=== PATIENT | female | born 1995 | race Caucasian/White ===

== ENCOUNTER 2018-04-08 15:46 | Emergency (ER) | payer SELFPAY ==
[2018-04-08 15:50] VITALS: BP 128/59; PULSE 78; TEMP 98.9; BMI 23.6
--- NOTE | 2018-04-08 16:30 | PDOC ---
History of Present Illness - General Chief Complaint: Cold Symptoms Stated Complaint: COUGH WITH BODYACHES Time Seen by Provider: 04/08/18 16:17 History Source: Patient, Operation Specialist Used (#[id number]) Exam Limitations: Clinical Condition - History of Present Illness Initial Comments: 04/08/18 16:30 Patient with no significant fat medical history present with complain of 1 week history of persistent cough, nasal congestion, malaise, chills and body aches. Patient also report tactile fever but has not taken anything for fever. Denies nausea or vomiting or diarrhea. I shortness of breath Timing/Duration: 1 week Past History - Past Medical History Allergies/Adverse Reactions: Allergies Allergy/AdvReac Type Severity Reaction Status Date / Time No Known Allergies Allergy Verified 04/08/18 15:51 Home Medications: Ambulatory Orders Azithromycin [Zithromax 250mg Tablets -] 250 mg PO UTDICT #6 tab 04/08/18 Benzonatate [Tessalon Pearls -] 100 mg PO TID PRN #21 capsule 04/08/18 Ipratropium [place] 2 spray NS BID PRN #1 spray 04/08/18 Methylprednisolone [Medrol Dose Edmundo] 4 mg PO ASDIR #21 tablet 04/08/18 COPD: No - Suicide/Smoking/Psychosocial Hx Smoking History: Never smoked Review of Systems - Review of Systems Able to Perform ROS?: Yes Is the patient limited [place]raini proficient: No Constitutional: Yes: Chills, Malaise. No: Weakness HEENTM: Yes: See HPI, Nose Congestion. No: Eye Pain, Blurred Vision, Tearing, Recent change in vision, Double Vision, Cataracts, Ear Pain, Ocular Prothesis, Ear Discharge, Nose Pain, Tinnitus, Nose Bleeding, Hearing Loss, Throat Pain, Throat Swelling, Mouth Pain, Dental Problems, Difficulty Swallowing, Mouth Swelling, Other Respiratory: Yes: Cough. No: Orthopnea, Shortness of Breath, SOB with Exertion , Wheezing, Productive cough, Hemoptysis Cardiac (ROS): No: Chest Pain, Edema, Irregular Heart Rate, Lightheadedness, Palpitations, Syncope, Chest Tightness, Other ABD/GI: No: Abdominal Distended, Abd. Pain w/ defecation, Blood Streaked Bowels , Constipated, Diarrhea, Difficulty Swallowing, Nausea, Poor Appetite, Poor Fluid Intake, Rectal Bleeding, Vomiting, Indigestion, Abdominal cramping, Tarry Stools, Other All Other Systems: Reviewed and Negative *Physical Exam - Vital Signs Last Vital Signs Temp Pulse Resp BP Pulse Ox 98.9 F 78 18 128/59 L 98 04/08/18 15:48 04/08/18 15:48 04/08/18 15:48 04/08/18 15:48 04/08/18 15:48 - Physical Exam Comments: 04/08/18 16:31 GENERAL: Well developed, well nourished. Awake and alert. No acute distress. HEENT: Normocephalic, atraumatic. PERRLA, EOMI. No conjunctival pallor. Sclera are non-icteric. Moist mucous membranes. Oropharynx is clear. NECK: Supple. Full ROM. CARDIOVASCULAR: Regular rate and rhythm. No murmurs, rubs, or gallops. Distal pulses are 2+ and symmetric. PULMONARY: No evidence of respiratory distress. Lungs clear to auscultation bilaterally. No wheezing, rales or rhonchi. ABDOMINAL: Soft. Non-tender. Non-distended. No rebound or guarding. No organomegaly. Normoactive bowel sounds. MUSCULOSKELETAL Normal range of motion at all joints. EXTREMITIES: No cyanosis. No clubbing. No edema. No calf tenderness. SKIN: Warm and dry. Normal capillary refill. No rashes. No jaundice. NEUROLOGICAL: Alert, awake, appropriate. Gait is normal without ataxia. PSYCHIATRIC: Cooperative. Good eye contact. Appropriate mood General Appearance: Yes: Nourished, Appropriately Dressed. No: Apparent Distress Medical Decision Making - Medical Decision Making 04/08/18 16:31 Patient with no significant past medical she present with complain of 1 week history of persistent nonproductive cough, nasal congestion, body aches and chills. Patient with no fever today. Lungs clear to auscultation. Symptoms likely URI and will be treated on outpatient basis with PCP follow-up *DC/Admit/Observation/Transfer Diagnosis at time of Disposition: Cough, Nasal congestion URI (upper respiratory infection) Qualifiers: URI type: unspecified URI Qualified Code(s): J06.9 - Acute upper respiratory infection, unspecified - Discharge Dispostion Disposition: HOME Condition at time of disposition: Stable Decision to Admit order: No - Prescriptions Prescriptions: Azithromycin [Zithromax 250mg Tablets -] 250 mg PO UTDICT #6 tab Benzonatate [Tessalon Pearls -] 100 mg PO TID PRN #21 capsule PRN Reason: Cough Ipratropium [place] 2 spray NS BID PRN #1 spray PRN Reason: nasal congestion Methylprednisolone [Medrol Dose Edmundo] 4 mg PO ASDIR #21 tablet - Referrals - Patient Instructions Printed Discharge Instructions: DI for Acute Bronchitis Additional Instructions: Take medications as prescribed. Increase fluid intake. Follow with primary care - Post Discharge Activity
== END 2018-04-08 16:42 | disposition home or self-care (01) ==
LOC: JERFT 15:46
DX: J06.9 Acute upper respiratory infection, unspecified (principal)
CPT/HCPCS: 99281-25

== ENCOUNTER 2018-11-11 08:30 | Emergency (ER) | payer SELFPAY ==
[2018-11-11 08:44] VITALS: BP 110/55; PULSE 75; TEMP 98; BMI 22.6
--- NOTE | 2018-11-11 09:27 | PDOC ---
History of Present Illness - General Chief Complaint: Pain Stated Complaint: LT SIDE BREAST PAIN Time Seen by Provider: 11/11/18 09:01 History Source: Patient Exam Limitations: Language Barrier (Tyrese Leroy #[id number]) - History of Present Illness Initial Comments: 11/11/18 09:27 HISTORY OF PRESENT ILLNESS: 23-year-old female denies medical history presents emergency Department with left breast pain for 7 days as progressively gotten worse over the past 3 days. Patient rates her pain now is 7/10 describes as a pressure. Patient denies any redness or discharge from her nipple. Patient reports her last menstrual period was July 31 reports she is currently sexually active. Patient does not believe she is . Patient denies any abdominal pain, vaginal bleeding, vaginal discharge. No recent travel or sick contacts. PAST MEDICAL HISTORY: Denies past medical history SURGICAL HISTORY: Denies ALLERGIES: No known drug allergies REVIEW OF SYSTEMS General/Constitutional: Denies fever or chills. Denies weakness, weight change. HEENT: Denies change in vision. Denies ear pain or discharge. Denies sore throat. Cardiovascular: Denies chest pain or shortness of breath. Respiratory: Denies cough, wheezing, or hemoptysis. Gastrointestinal: Denies nausea, vomiting, diarrhea or constipation. Denies rectal bleeding. Genitourinary: Denies dysuria, frequency, or change in urination. Musculoskeletal: Denies joint or muscle swelling or pain. Denies neck or back pain. Skin and breasts: see HPI Neurologic: Denies headache, vertigo, loss of consciousness, or loss of sensation. Psychiatric: Denies depression or anxiety. Endocrine: Denies increased thirst. Denies abnormal weight change. Hematologic/Lymphatic: Denies anemia, easy bleeding, or history of blood clots. Allergic/Immunologic: Denies hives or skin allergy. Denies latex allergy. PHYSICAL EXAM General Appearance: Well-appearing, appropriately dressed. No apparent distress , no intoxication. HEENT: EOMI, PERRLA, normal ENT inspection, normal voice, TMs normal, pharynx normal. No conjunctival pallor. No photophobia, scleral icterus. Neck: Supple. Trachea midline. No tenderness, rigidity, carotid bruit, stridor , lymphadenopathy, or thyromegaly. Respiratory/Chest: Lungs CTAB. No shortness of breath, chest tenderness, respiratory distress, accessory muscle use. No crackles, rales, rhonchi, stridor , wheezing, dullness Cardiovascular: RRR. S1, S2. No JVD, murmur, bradycardia, tachycardia. Vascular Pulses: Dorsalis-Pedis (R): 2+, Dorsalis-Pedis (L): 2+ Gastrointestinal/Abdominal: Normal bowel sounds. Abdomen soft, non-distended. No tenderness or rebound tenderness. No organomegaly, pulsatile mass, guarding, hernia, hepatomegaly, splenomegaly. Lymphatic: No adenopathy, tenderness. Breast Exam: Breast exam performed with CALDERON Singer at the bedside. No erythema palpable masses present. Unable to express discharge from nipple. No tenderness or masses present in the [place]. No difference in exam from unaffected side. Musculoskeletal/Extremities: Normal inspection. FROM of all extremities, normal capillary refill. Pelvis Stable. No CVA tenderness. No tenderness to extremities, pedal edema, swelling, erythema or deformity. Integumentary: Appropriate color, dry, warm. No cyanosis, erythema, jaundice or rash Neurologic: plate slitter and inspector II-XII intact. Fully oriented, alert. Appropriate mood/affect. Motor strength 5/5. No appreciable EOM palsy, facial droop or sensory deficit. 11/11/18 09:36 Past History - Past Medical History Allergies/Adverse Reactions: Allergies Allergy/AdvReac Type Severity Reaction Status Date / Time No Known Allergies Allergy Verified 11/11/18 08:40 Home Medications: Ambulatory Orders NK [No Known Home Medication] 11/11/18 COPD: No - Immunization History Immunization Up to Date: No - Suicide/Smoking/Psychosocial Hx Smoking History: Never smoked Hx Alcohol Use: No Drug/Substance Use Hx: No *Physical Exam - Vital Signs Last Vital Signs Temp Pulse Resp BP Pulse Ox 98.0 F 75 18 110/55 L 98 11/11/18 08:41 11/11/18 08:41 11/11/18 08:41 11/11/18 08:41 11/11/18 08:41 Medical Decision Making - Medical Decision Making 11/11/18 09:35 A/P: 23-year-old woman with left breast pain for one week Normal breast exam Given patient is missing her period for 3 months this is likely Urine testing Reassess 11/11/18 09:57 11/11/18 09:58 Given normal breast exam and negative testing I will discharge the patient the follow-up to primary doctor for outpatient imaging. *DC/Admit/Observation/Transfer Diagnosis at time of Disposition: Breast pain, left - Discharge Dispostion Disposition: HOME Condition at time of disposition: Stable Decision to Admit order: No - Referrals - Patient Instructions Additional Instructions: Breast exam is normal today. Follow-up to primary doctor for any imaging including ultrasound and/or mammography. Your testing is negative. Return to emergency department for any new or worsening symptoms including discharge from her nipple, redness to the breast or increased pain. Thank you very much for choosing us to provide your emergent health care needs. El examen de senos es normal hoy. Seguimiento al mdico de cabecera para cualquier imagen que incluya ecografa y / o mamografa. [place]man prueba de embarazo es negativa. Regrese al departamento de emergencias para detectar cualquier sntoma nuevo o que empeore, stephanie secrecin de grossman pezn, enrojecimiento en el seno o aumento del dolor. Muchas dani por elegirnos para satisfacer sav necesidades de atencin mdica de emergencia. - Post Discharge Activity
== END 2018-11-11 10:04 | disposition home or self-care (01) ==
LOC: JER 08:30 → JERFT 08:30
DX: N64.4 Mastodynia (principal)
CPT/HCPCS: 84703; 99281-25

== ENCOUNTER 2019-07-28 20:01 | Emergency (ER) | payer SELFPAY ==
[2019-07-28] MEDS ORDERED: diphenhydrAMINE HCL 50 MG CAPSULE PO ONE (20:09)
[2019-07-28] MEDS ORDERED: DEXAMETHASONE LIQUID 0.5 MG/5 ML PO ONE (20:09)
--- NOTE | 2019-07-28 20:09 | PDOC ---
Rapid Medical Evaluation Time Seen by Provider: 07/28/19 20:08 Medical Evaluation: Allergies Allergy/AdvReac Type Severity Reaction Status Date / Time No Known Allergies Allergy Verified 11/11/18 08:40 07/28/19 20:08 HPI: Rash since yesterday PE: Raised wheels B UE and LE ORDERS: Decadron and benadryl Discharge Disposition - Diagnosis Allergic rash present on examination - Referrals - Patient Instructions - Post Discharge Activity
[2019-07-28 20:10] VITALS: BP 110/66; PULSE 71; TEMP 97.9; BMI 23.6
[2019-07-28] MEDS ORDERED: diphenhydrAMINE HCL 25 MG CAPSULE (FP) PO ONE (20:58)
[2019-07-28] MEDS ORDERED: DEXAMETHASONE SOD PHOSPHATE 10 MG/1 ML VIAL ONE (20:58)
[2019-07-28] MEDS ORDERED: hydrOXYzine PAMOATE 25 MG CAPSULE (FP) PO ONE ×2 (21:46→21:55)
[2019-07-28] MEDS ORDERED: FAMOTIDINE 20 MG TABLET PO ONE (21:47)
[2019-07-28] MEDS ORDERED: FAMOTIDINE 20 MG TABLET ONE (21:50)
--- NOTE | 2019-07-28 21:53 | PDOC ---
History of Present Illness - General Chief Complaint: Allergic Reaction Stated Complaint: ALLERGIC REACTION Time Seen by Provider: 07/28/19 20:08 History Source: Patient - History of Present Illness Initial Comments: 07/28/19 22:36 Chief complaint: Allergic reaction Patient is a healthy 24-year-old female with 1 day of itchy rash. Patient states that her and her drank coffee and had bread yesterday morning and she broke out in an itchy rash. No respiratory problems, no fever. Patient is never had this before. Patient took Benadryl last night which she states did not work. Patient is not on any medication GENERAL/CONSTITUTIONAL: No fever, weakness. dizziness HEAD, EYES, EARS, NOSE AND THROAT: No change in vision. No ear pain or discharge. No sore throat. CARDIOVASCULAR: No chest pain RESPIRATORY: No shortness of breath or cough GASTROINTESTINAL: No pain, nausea, vomiting, diarrhea or constipation GENITOURINARY: No dysuria MUSCULOSKELETAL: No neck or back pain SKIN: +rash NEUROLOGIC: No headache, vertigo, loss of consciousness, or loss of sensation. GENERAL: The patient is awake, alert, and fully oriented, in no acute distress. HEAD: Normal with no signs of trauma. EYES: Pupils equal, round and reactive to light, sclera anicteric, conjunctiva clear. ENT: pharynx: no erythema, no exudate, uvula midline, no oral lesions, voice is normal NECK: supple CHEST: clear, nontender, rr ABD: soft, nontender BACK: no tenderness or signs of injury EXTREMITIES: Normal range of motion, no edema. NEUROLOGICAL: Normal speech, normal gait. SKIN: Warm, Dry, scattered urticaria, blanchable, no signs of petechiae, purpura , vesicles or other concerning skin findings. Past History - Past Medical History Allergies/Adverse Reactions: Allergies Allergy/AdvReac Type Severity Reaction Status Date / Time No Known Allergies Allergy Verified 07/28/19 20:10 Home Medications: Ambulatory Orders Hydroxyzine Pamoate 25 mg PO TID PRN #21 capsule 07/28/19 predniSONE [Deltasone -] 40 mg PO DAILY #8 tablet 07/28/19 COPD: No - Immunization History Immunization Up to Date: No - Psycho Social/Smoking Cessation Hx Smoking History: Never smoked Information on smoking cessation initiated: No Hx Alcohol Use: No Drug/Substance Use Hx: No *Physical Exam - Vital Signs Last Vital Signs Temp Pulse Resp BP Pulse Ox 97.9 F 71 18 110/66 99 07/28/19 20:08 07/28/19 20:08 07/28/19 20:08 07/28/19 20:08 07/28/19 20:08 ED Treatment Course - Medications Given in the ED: ED Medications Discontinued Medications Generic Name Dose Route Start Last Admin Trade Name Freq PRN Reason Stop Dose Admin Dexamethasone 10 mg 07/28/19 20:09 07/28/19 20:59 Decadron Liquid - PO 07/28/19 20:10 10 mg ONCE ONE Administration Diphenhydramine HCl 50 mg 07/28/19 20:09 07/28/19 20:59 Benadryl - PO 07/28/19 20:10 50 mg ONCE ONE Administration Medical Decision Making - Medical Decision Making 07/28/19 22:38 Healthy 24-year-old female with 1 day of allergic urticaria. Started after patient drank coffee and ate bread yesterday morning. Patient states Benadryl is not working. Patient had been given Benadryl and Decadron that was ordered from triage. Will give patient hydroxyzine in the ER and a prescription. Patient will be given prescription for prednisone. Discussed issues, findings, results, applicable medications and treatments and follow-up. All these were understood and all questions were answered Discharge - Discharge Information Problems reviewed: Yes Clinical Impression/Diagnosis: Allergic rash present on examination Condition: Stable Disposition: HOME - Admission No - Additional Discharge Information Prescriptions: Hydroxyzine Pamoate 25 mg PO TID PRN #21 capsule PRN Reason: Allergies predniSONE [Deltasone -] 40 mg PO DAILY #8 tablet - Follow up/Referral - Patient Discharge Instructions Patient Printed Discharge Instructions: DI for General Allergic Reactions Additional Instructions: Take benadryl 25-50 mg every 4 hours for itching. If the Benadryl is not working you can take the hydroxyzine 25 mg every 8 hours. This will also make you sleepy Starting tomorrow, take prednisone 40 mg once daily for anther 4 days, start tomorrow take pepcid 20 mg once daily which will help with the reaction and protect your stomach for any upset from the prednisone return to the er if short of breath, difficulty breathing, or getting worse. otherwise follow up with your doctor in 2-3 days [place] benadryl 25-50 mg cada 4 horas para la picazn. Si el Benadryl no funciona , puede gaby la hidroxicina 25 mg cada 8 horas. Garrett tambin te annel sueo A partir de maana, tome prednisona 40 mg joshua vez al da gonsalo otros 4 bermeo, comience maana tome pepcid 20 mg joshua vez al da, lo que ayudar con la reaccin y proteger carrillo estmago de cualquier malestar de la prednisona. regrese al er si tiene dificultad para respirar, dificultad para respirar o empeora. de lo contrario, asmita un seguimiento con carrillo mdico en 2-3 bermeo. Print Language: IRISH - Post Discharge Activity
== END 2019-07-28 21:58 | disposition home or self-care (01) ==
LOC: JERFT 20:01
DX: L50.0 Allergic urticaria (principal)
CPT/HCPCS: 99282-25

== ENCOUNTER 2023-03-07 08:58 | Emergency (ER) | payer OTHER ==
[2023-03-07 09:11] VITALS: BP 105/58; PULSE 92; RESP 18; TEMP 98.3; BMI 25.0
[2023-03-07] MEDS ORDERED: ACETAMINOPHEN 500 MG TABLET (FP) PO ONE (09:36)
[2023-03-07] MEDS ORDERED: KETOROLAC TROMETHAMINE 30 MG/1 ML VIAL IM ONE (09:39)
[2023-03-07] MEDS ORDERED: LIDOCAINE 5% TOPICAL PATCH TP ONE (09:39)
[2023-03-07] MEDS ORDERED: ACETAMINOPHEN 500 MG TABLET (FP) ONE (09:49)
[2023-03-07] MEDS ORDERED: LIDOCAINE 5% TOPICAL PATCH ONE (09:49)
[2023-03-07] MEDS ORDERED: KETOROLAC TROMETHAMINE 15 MG/ML VIAL ONE (09:49)
[2023-03-07] MEDS ORDERED: LIDOCAINE PATCH REMOVAL MC ONE (22:00)
== END 2023-03-07 11:25 | disposition home or self-care (01) ==
LOC: JER 08:58 → JERFT 08:58
PROC: 3E0233Z Introduction of Anti-inflammatory into Muscle, Percutaneous Approach (ICD-10-PCS; principal; 2023-03-07)
DX: M25.511 Pain in right shoulder (principal)
CPT/HCPCS: 71046-TC-FY; 93005; 93010; 99284-25

== ENCOUNTER 2023-05-13 22:07 | Emergency (ER) | payer OTHER ==
[2023-05-13 22:17] VITALS: BP 107/72; PULSE 68; RESP 20; TEMP 98.2; BMI 23.0
[2023-05-13] MEDS ORDERED: LIDOCAINE VISCOUS 2% ORAL/TOP 100 ML BOTTLE MM ONE (23:12)
[2023-05-13] MEDS ORDERED: MAG HYDROX/AL HYDROX/SIMETH 30 ML UNIT-DOSE CUP PO ONE (23:12)
[2023-05-13] MEDS ORDERED: PANTOPRAZOLE 40 MG TABLET PO ONE ×2 (23:12→23:13)
[2023-05-13] MEDS ORDERED: LIDOCAINE VISCOUS 2% ORAL/TOP 15 ML UNIT-DOSE CUP ONE (23:14)
[2023-05-13] MEDS ORDERED: MAG HYDROX/AL HYDROX/SIMETH 30 ML UNIT-DOSE CUP ONE (23:14)
== END 2023-05-14 01:18 | disposition home or self-care (01) ==
LOC: JER 22:07
DX: R06.02 Shortness of breath (principal); R07.0 Pain in throat; R09.89 Other specified symptoms and signs involving the circulatory and respiratory systems; Z20.822 Contact with and (suspected) exposure to COVID-19
CPT/HCPCS: 0241U-QW; 70360-TC-FY; 71046-TC-FY; 84703; 87651; 93005; 93010; 99285-25